=== PATIENT | male | born 1965 | race Caucasian/White ===

== ENCOUNTER → 2016-06-17 | Outpatient (CLI) | payer MEDICARE ==
[~2016-06-17] MED LIST: ABILIFY 10MG TA10 MG PO; ABILIFY20 MG PO; ALBUTEROL0.09 MG/A4 IH; ALBUTEROL0.83 MG/ML IH; AMBIEN 10MG10 MG PO; ASPI325T6 PO; ASPIRIN 81M81 MG/TA2 PO; ASPIRIN E.C. 8181 MG PO; ATARAX50 MG PO; ATIVAN 0.50.5 MG/TAB PO; ATROVENT INHALE14 GM IH; B COMPLEX1 TA2 PO; BETAPACE 80MG80 MG PO; BETAPACE AF160 MG PO; BUDEPRION XL150 MG PO; CEFTIN500 MG PO; CELEXA 20MG20 MG/TAB PO; CHROMAX PO; CIPRO 500MG TA500 MG PO; CLARITIN 1010 MG/TAB PO; CLEOCIN HC150 MG/CAP PO; CLEOCIN HCL300 MG PO; COLACE 100100 MG/CAP PO; COMBIVENT INH14.7 GM IH; COREG 3.123.125 MG/T PO; COREG 6.256.25 MG/TA PO; DEPAKOTE ER 50500 MG PO; DEPAKOTE500 MG PO; DHEA50 M1 PO; DIFLUCAN150 MG PO; DIFLUCAN200 MG PO; DILAUDID 2MG TAB2 MG PO; DOXYCYCLINE 10100 MG PO; ELIQUIS 5MG PO; FENTANYL 25 MCG TD; FENTANYL 25 MCG TOP; FENTANYL 50MCG TD; FENTANYL 50MCG TOP; FENTANYL25 MCG/HR TD; FLAGYL500 MG PO; FLEXERIL 1010 MG/TAB PO; FLOMAX 0.40.4 MG/CAP PO; FLOVENT 110MCG7.9 GM IH; GLUCOPHAGE500 MG/TAB PO; GOOD NEIGHBOR500 M6 PO; HUMALOG 75/2100 U/ML SC; HUMALOG MIX 75/10 ML SQ; IMDUR 30MG30 MG/TAB PO; IPRATROPIUM BROM3 M1 IH; KLONOPIN 0.5MG0.5 MG PO; KLONOPIN 1MG1 MG PO; LAMICTAL 25MG T25 MG PO; LAMICTAL150 MG PO; LAMICTAL200 MG PO; LANTUS SOLOS100 U/ML SQ; LASIX 20MG TABL20 MG PO; LASIX 40MG TABL40 MG PO; LEVAQUIN 5500 MG/TA1 PO; LEVAQUIN 750MG750 M1 PO; LIORESAL 1010 MG/TAB PO; LIPITOR 10MG10 MG PO; LIPITOR 80MG80 MG PO; LIPITOR20 MG PO; LOPID 600M600 MG/TAB PO; LOPRESSOR 225 MG/TAB PO; MEDROL 4MG DOSPA4 MG PO; NITROQUICK0.4 MG SL; NITROSTAT0.4 MG/TAB SL; NORCO 325 MG-101 TAB PO; NORCO 325 MG-51 TAB PO; OMNICEF 300MG300 MG PO; PERCOCET 325 MG1 TA2 PO; PERCOCET 325 MG1 TA3 PO; PERCOCET 325 MG1 TAB PO; PERCR 7.5 PO; PHENERGAN W/CO120 ML PO; PLAVIX 75MG TAB75 MG PO; PREDNISONE10 MG PO; PREDNISONE20 MG PO; PRINIVIL20 MG PO; PRINIVIL5 MG PO; PROAIR HFA0.09 MG/AC IH; PULMO-AIDE COMP1 DEV INH; RANEXA 500MG T500 MG PO; RAPAFLO8 MG PO; ROBAXIN 75750 MG/TAB PO; ROBITUSSIN DM 105 ML PO; RT SPIRIVA18 MCG IH; TESSALON PERLE200 MG PO; TOPAMAX50 MG PO; TUSS PO; TYLENOL 325MG325 MG PO; TYLENOL W/COD1 UDTAB PO; ULTRAM 50MG TAB50 MG PO; VENTOLIN0.09 MG IH; WELLBUTRIN SR150 M1 PO; WELLBUTRIN XL150 MG PO; WELLBUTRIN XL300 M1 PO; XANAX 1MG1 MG PO; ZESTRIL 20MG TA20 MG PO; ZITHROMAX 250M250 MG PO; ZITHROMAX Z PA250 MG PO; ZOLOFT 100MG100 MG PO; ZYRTEC 10MG10 MG PO
== END ==
LOC: BHSO 10:05
DX: F31.81 Bipolar II disorder (principal)

== ENCOUNTER 2016-07-02 16:04 | Emergency (ER) | payer MEDICARE ==
[~2016-07-02] VITALS: Ht 188 cm; Wt 131.8 kg
[~2016-07-02 16:04] MED LIST changes: -BETAPACE 80MG80 MG PO; -CLARITIN 1010 MG/TAB PO; -COREG 3.123.125 MG/T PO; -COREG 6.256.25 MG/TA PO; -FENTANYL 25 MCG TD; -FLAGYL500 MG PO; -LAMICTAL 25MG T25 MG PO; -LANTUS SOLOS100 U/ML SQ; -LASIX 20MG TABL20 MG PO; -OMNICEF 300MG300 MG PO; -PRINIVIL5 MG PO; -RAPAFLO8 MG PO; -TESSALON PERLE200 MG PO; -TOPAMAX50 MG PO
[2016-07-02 16:09] VITALS: BP 123/80; PULSE 93; TEMP 98.6
[2016-07-02 16:54] LABS: INFLUENZA B NEGATIVE
[2016-07-02] MEDS ORDERED: DOXYCYCLINE 10100 MG PO (16:59)
[2016-07-02] MEDS ORDERED: PROAIR HFA0.09 MG/AC IH (16:59)
[2016-07-02] MEDS ORDERED: TESSALON PERLE200 MG PO (16:59)
== END 2016-07-02 17:07 | disposition home or self-care (01) ==
LOC: COL.ER 16:04
PROVIDERS: Nurse Practitioner
DX: J40 Bronchitis, not specified as acute or chronic (principal); I10 Essential (primary) hypertension; E11.9 Type 2 diabetes mellitus without complications; Z79.4 Long term (current) use of insulin; I48.91 Unspecified atrial fibrillation; I25.10 Atherosclerotic heart disease of native coronary artery without angina pectoris; F17.210 Nicotine dependence, cigarettes, uncomplicated; Z79.02 Long term (current) use of antithrombotics/antiplatelets

== ENCOUNTER 2016-07-15 14:46 | Emergency (ER) | payer MEDICARE ==
[~2016-07-15] VITALS: Ht 188 cm; Wt 122.7 kg
[~2016-07-15 14:46] MED LIST changes: +TESSALON PERLE200 MG PO
[2016-07-15 14:52] VITALS: BP 118/82; TEMP 98.2
[2016-07-15] MEDS ORDERED: CLARITIN 1010 MG/TAB PO (15:32)
[2016-07-15] MEDS ORDERED: PRINIVIL20 MG PO (15:32)
[2016-07-15] MEDS ORDERED: IMDUR 30MG30 MG/TAB PO (15:33)
[2016-07-15] MEDS ORDERED: LOPRESSOR 225 MG/TAB PO (15:34)
[2016-07-15] MEDS ORDERED: WELLBUTRIN XL300 M1 PO (15:35)
[2016-07-15] MEDS ORDERED: KLONOPIN 1MG1 MG PO (15:35)
[2016-07-15] MEDS ORDERED: TOPAMAX50 MG PO (15:36)
[2016-07-15] MEDS ORDERED: COREG 6.256.25 MG/TA PO (15:37)
[2016-07-15] MEDS ORDERED: LAMICTAL 25MG T25 MG PO (15:37)
[2016-07-15] MEDS ORDERED: LOPID 600M600 MG/TAB PO (15:38)
[2016-07-15 16:16] LABS: BASO # 0.1 (0.0-0.2); EOS # 0.3 (0.0-0.7); EOS % 2.8 % (0-4.0); GRAN % 45.3 % (42.2-75.2); HEMATOCRIT 50.8 % (42.0-52.0); HEMOGLOBIN 17.3 g/dl (13.5-18.0); LYMPH # 3.7 (1.2-3.4); LYMPH % 41.6 % (20.0-51.0); MEAN CELL VOLUME 86 fl (80.0-100.0); MEAN CORPUSCULAR HEMOGLOBIN 29 pg (27.0-31.0); MEAN CORPUSCULAR HGB CONC 34 g/dl (33.0-37.0); MEAN PLATELET VOLUME 10.2 fl (7.4-10.4); MONO # 0.8 (0.1-0.6); MONO % 8.8 % (1.7-9.3); PLATELET COUNT 238 K/mm3 (130-400); REDCELL DISTRIBUTION WIDTH-CV 13.7 % (11.5-14.5); WHITE BLOOD COUNT 8.9 K/mm3 (4.8-10.8)
[2016-07-15 16:23] LABS: ADJUSTED CALCIUM 10.3 mg/dL (8.4-10.2); ALBUMIN 3.9 gm/dL (3.5-5.0); CALCIUM 10.2 mg/dL (8.4-10.2); CREATININE, serum 1.02 mg/dL (0.66-1.25); POTASSIUM 3.7 mmol/L (3.4-5.0); TOTAL PROTEIN 7.7 gm/dL (6.4-8.2)
[2016-07-15 16:35] LABS: TROPONIN-I 0.472 ng/mL (0.000-0.034)
[2016-07-15 23:07] VITALS: PULSE 84
== END 2016-07-15 18:30 | disposition home or self-care (01) ==
LOC: COL.ER 14:46
PROVIDERS: Family Medicine
DX: J18.9 Pneumonia, unspecified organism (principal); E11.65 Type 2 diabetes mellitus with hyperglycemia; I11.0 Hypertensive heart disease with heart failure; R42 Dizziness and giddiness; R53.83 Other fatigue; I50.9 Heart failure, unspecified; Z95.810 Presence of automatic (implantable) cardiac defibrillator; Z79.02 Long term (current) use of antithrombotics/antiplatelets; F17.210 Nicotine dependence, cigarettes, uncomplicated; Z45.018 Encounter for adjustment and management of other part of cardiac pacemaker; I48.91 Unspecified atrial fibrillation; Z53.29 Procedure and treatment not carried out because of patient's decision for other reasons
CPT/HCPCS: J0696; J1644; J1815

== ENCOUNTER 2016-08-06 19:36 | Emergency (ER) | payer MEDICARE ==
[~2016-08-06] VITALS: Ht 188 cm; Wt 119.5 kg
[~2016-08-06 19:36] MED LIST changes: +CLARITIN 1010 MG/TAB PO; +COREG 6.256.25 MG/TA PO; +LAMICTAL 25MG T25 MG PO; +TOPAMAX50 MG PO
[2016-08-06 19:40] VITALS: TEMP 98
[2016-08-06] MEDS ORDERED: ELIQUIS 5MG PO (20:02)
[2016-08-06 20:20] LABS: BASO # 0.1 (0.0-0.2); BASO % 0.5 % (0.0-2.0); EOS # 0.2 (0.0-0.7); EOS % 2.3 % (0-4.0); GRAN # 4.9 (1.4-6.5); GRAN % 49.4 % (42.2-75.2); HEMATOCRIT 51.7 % (42.0-52.0); HEMOGLOBIN 17.2 g/dl (13.5-18.0); LYMPH # 3.8 (1.2-3.4); LYMPH % 38.1 % (20.0-51.0); MEAN CELL VOLUME 86 fl (80.0-100.0); MEAN CORPUSCULAR HEMOGLOBIN 29 pg (27.0-31.0); MEAN CORPUSCULAR HGB CONC 33 g/dl (33.0-37.0); MONO # 0.9 (0.1-0.6); MONO % 9.4 % (1.7-9.3); PLATELET COUNT 270 K/mm3 (130-400); RED BLOOD COUNT 6.03 M/mm3 (4.20-5.60); REDCELL DISTRIBUTION WIDTH-CV 13.9 % (11.5-14.5); WHITE BLOOD COUNT 9.9 K/mm3 (4.8-10.8)
[2016-08-06 20:22] LABS: INR 1.2 (0.8-3.0); PROTHROMBIN TIME 13.4 SECONDS (9.7-12.8)
[2016-08-06 20:24] LABS: PARTIAL THROMBOPLASTIN TIME 46.2 SECONDS (26.0-37.0)
[2016-08-06 20:36] LABS: ADJUSTED CALCIUM 9.6 mg/dL (8.4-10.2); ALBUMIN 4.4 gm/dL (3.5-5.0); BILIRUBIN,TOTAL 1.1 mg/dL (0.0-1.0); CALCIUM 9.9 mg/dL (8.4-10.2); CREATININE, serum 0.94 mg/dL (0.66-1.25); POTASSIUM 3.7 mmol/L (3.4-5.0); TOTAL PROTEIN 8.1 gm/dL (6.4-8.2)
[2016-08-06 21:03] LABS: URINE APPEARANCE Turbid; URINE COLOR Red
[2016-08-06 21:04] LABS: PH 6 (5-8); SQUAMOUS EPITHELIAL 0-2 /hpf; URINE BILIRUBIN Negative (NEGATIVE); URINE BLOOD 2+ (NEGATIVE); URINE GLUCOSE Negative (NEGATIVE); URINE KETONE Negative (NEGATIVE); URINE RBC >50 /hpf; URINE UROBILINOGEN Negative (NEGATIVE); URINE WBC >50 /hpf
[2016-08-06 21:05] LABS: URINE BACTERIA Many /hpf
[2016-08-06] MEDS ORDERED: FLAGYL500 MG PO (21:35)
[2016-08-06] MEDS ORDERED: CIPRO 500MG TA500 MG PO (21:35)
[2016-08-06 21:42] VITALS: BP 126/94; PULSE 69
== END 2016-08-06 21:43 | disposition home or self-care (01) ==
LOC: COL.ER 19:36
PROVIDERS: Emergency Medicine
DX: N39.0 Urinary tract infection, site not specified (principal); R31.0 Gross hematuria; R10.31 Right lower quadrant pain; E11.9 Type 2 diabetes mellitus without complications; I10 Essential (primary) hypertension; Z79.02 Long term (current) use of antithrombotics/antiplatelets; Z79.84 Long term (current) use of oral hypoglycemic drugs

== ENCOUNTER 2016-08-21 19:24 | Inpatient (IN) | payer MEDICARE ==
[~2016-08-21] VITALS: Ht 188 cm; Wt 119.7 kg
[~2016-08-21 19:24] MED LIST changes: +FLAGYL500 MG PO
[2016-08-21 20:06] LABS: BASO # 0.1 (0.0-0.2); BASO % 0.6 % (0.0-2.0); EOS # 0.3 (0.0-0.7); EOS % 2.8 % (0-4.0); GRAN # 4.8 (1.4-6.5); GRAN % 48.2 % (42.2-75.2); HEMATOCRIT 51.7 % (42.0-52.0); HEMOGLOBIN 17.3 g/dl (13.5-18.0); LYMPH # 3.9 (1.2-3.4); LYMPH % 39.2 % (20.0-51.0); MEAN CELL VOLUME 86 fl (80.0-100.0); MEAN CORPUSCULAR HEMOGLOBIN 29 pg (27.0-31.0); MEAN CORPUSCULAR HGB CONC 34 g/dl (33.0-37.0); MEAN PLATELET VOLUME 9.6 fl (7.4-10.4); MONO # 0.9 (0.1-0.6); MONO % 8.9 % (1.7-9.3); PLATELET COUNT 259 K/mm3 (130-400); RED BLOOD COUNT 6.05 M/mm3 (4.20-5.60); REDCELL DISTRIBUTION WIDTH-CV 14.3 % (11.5-14.5); WHITE BLOOD COUNT 9.9 K/mm3 (4.8-10.8)
[2016-08-21 20:09] LABS: INR 1.1 (0.8-3.0); PROTHROMBIN TIME 12.2 SECONDS (9.7-12.8)
[2016-08-21 20:12] LABS: PARTIAL THROMBOPLASTIN TIME 33.6 SECONDS (26.0-37.0)
[2016-08-21 20:23] LABS: ADJUSTED CALCIUM 9.5 mg/dL (8.4-10.2); ALBUMIN 4.6 gm/dL (3.5-5.0); BILIRUBIN,TOTAL 0.9 mg/dL (0.0-1.0); CREATININE, serum 0.98 mg/dL (0.66-1.25); MAGNESIUM 2.1 mg/dL (1.6-2.3); PHOSPHOROUS 3.9 mg/dL (2.5-4.5); POTASSIUM 3.9 mmol/L (3.4-5.0)
[2016-08-21 20:26] VITALS: BP 109/69; PULSE 70
[2016-08-21 20:35] LABS: TROPONIN-I 0.015 ng/mL (0.000-0.034)
[2016-08-21 20:39] LABS: PROLACTIN 10.3 ng/mL (3.7-17.9)
[2016-08-21] MEDS ORDERED: LANTUS SOLOS100 U/ML SQ (21:41)
[2016-08-21] MEDS ORDERED: FENTANYL 25 MCG TD (21:43)
[2016-08-21] MEDS ORDERED: BETAPACE 80MG80 MG PO (21:46)
[2016-08-21] MEDS ORDERED: OMNICEF 300MG300 MG PO (21:48)
[2016-08-21 22:14] LABS: PH 6 (5-8); URINE APPEARANCE Clear; URINE BACTERIA None Seen /hpf; URINE BILIRUBIN Negative (NEGATIVE); URINE BLOOD 3+ (NEGATIVE); URINE COLOR Yellow; URINE GLUCOSE 1+ (NEGATIVE); URINE KETONE Trace (NEGATIVE); URINE RBC >50 /hpf; URINE UROBILINOGEN Negative (NEGATIVE); URINE WBC 0-2 /hpf
[2016-08-21 23:19] VITALS: BP 96/57; PULSE 56; TEMP 97.8
[2016-08-22 03:13] VITALS: BP 136/91; PULSE 77; TEMP 97.9
[2016-08-22 07:50] VITALS: BP 151/104; PULSE 88; TEMP 97.4
[2016-08-22 12:56] VITALS: BP 106/63; PULSE 75; TEMP 97.9
[2016-08-22 17:48] VITALS: BP 116/65; PULSE 58; TEMP 98.2
[2016-08-22 20:14] VITALS: BP 114/63; PULSE 61; TEMP 98.6
[2016-08-22 22:39] VITALS: BP 113/68; PULSE 54; TEMP 98.2; TEMP 98.4
[2016-08-23] VITALS (345 sets, daily range): BP systolic 92–108; BP diastolic 47–84; PULSE 54–64; TEMP 97.7–967.3; O2SAT 88–100
[2016-08-24] VITALS (536 sets, daily range): BP systolic 92–129; BP diastolic 55–83; PULSE 56–109; TEMP 97.8–98.5; O2SAT 70–100
[2016-08-25 02:53] VITALS: BP 119/72; PULSE 52; TEMP 98
[2016-08-25 05:53] VITALS: BP 119/57; PULSE 54; TEMP 98
[2016-08-25 10:30] VITALS: BP 122/73; PULSE 68; TEMP 98
[2016-08-25 14:05] VITALS: BP 130/78; PULSE 75; TEMP 98.1
[2016-08-25] MEDS ORDERED: ASPIRIN E.C. 8181 MG PO (14:39)
[2016-08-25] MEDS ORDERED: COREG 3.123.125 MG/T PO (14:39)
[2016-08-25] MEDS ORDERED: LASIX 20MG TABL20 MG PO (14:40)
== END 2016-08-25 15:30 | disposition home or self-care (01) | DRG 315 ==
LOC: COL.ER 19:24 → MEDICAL 21:39 → IMCU 08-23 09:00 → MEDICAL 08-23 09:00 → IMCU 08-23 16:30 → MEDICAL 08-23 17:53 → IMCU 08-23 17:53 → MEDICAL 08-23 17:53 → SURG 08-24 13:10
PROVIDERS: Emergency Medicine
DX: I95.9 Hypotension, unspecified (principal); I50.22 Chronic systolic (congestive) heart failure; I11.0 Hypertensive heart disease with heart failure; I25.10 Atherosclerotic heart disease of native coronary artery without angina pectoris; E11.9 Type 2 diabetes mellitus without complications; J44.9 Chronic obstructive pulmonary disease, unspecified; Z95.1 Presence of aortocoronary bypass graft; F17.210 Nicotine dependence, cigarettes, uncomplicated; Z95.5 Presence of coronary angioplasty implant and graft; I48.91 Unspecified atrial fibrillation; Z79.4 Long term (current) use of insulin
CPT/HCPCS: 99232-AI; 99239; G0378; J1650; J1815; J7040

== ENCOUNTER → 2016-09-22 | Outpatient (CLI) | payer MEDICARE ==
[~2016-09-22] MED LIST changes: +BETAPACE 80MG80 MG PO; +COREG 3.123.125 MG/T PO; +FENTANYL 25 MCG TD; +LANTUS SOLOS100 U/ML SQ; +LASIX 20MG TABL20 MG PO; +OMNICEF 300MG300 MG PO; +PRINIVIL5 MG PO; +RAPAFLO8 MG PO
== END ==
LOC: BHSO 09:41
DX: F31.81 Bipolar II disorder (principal)

== ENCOUNTER 2016-10-04 16:55 | Inpatient (IN) | payer MEDICARE ==
[~2016-10-04] VITALS: Ht 182.9 cm; Wt 87.8 kg
[~2016-10-04 16:55] MED LIST changes: -PRINIVIL5 MG PO; -RAPAFLO8 MG PO
[2016-10-04 18:11] LABS: HEMATOCRIT 49.1 % (42.0-52.0); HEMOGLOBIN 16.9 g/dl (13.5-18.0); MEAN CELL VOLUME 87 fl (80.0-100.0); MEAN CORPUSCULAR HEMOGLOBIN 30 pg (27.0-31.0); MEAN CORPUSCULAR HGB CONC 34 g/dl (33.0-37.0); MEAN PLATELET VOLUME 9.5 fl (7.4-10.4); PLATELET COUNT 325 K/mm3 (130-400); RED BLOOD COUNT 5.65 M/mm3 (4.20-5.60); REDCELL DISTRIBUTION WIDTH-CV 14.9 % (11.5-14.5)
[2016-10-04 18:14] LABS: ADD PATHOLOGY DIFF REVIEW NO
[2016-10-04 18:23] LABS: ADJUSTED CALCIUM 9.5 mg/dL (8.4-10.2); ALBUMIN 4.4 gm/dL (3.5-5.0); BILIRUBIN,TOTAL 1.1 mg/dL (0.0-1.0); CALCIUM 9.8 mg/dL (8.4-10.2); CREATININE, serum 0.89 mg/dL (0.66-1.25); POTASSIUM 3.6 mmol/L (3.4-5.0); TOTAL PROTEIN 8.1 gm/dL (6.4-8.2)
[2016-10-04 18:34] LABS: TROPONIN-I 0.015 ng/mL (0.000-0.034)
[2016-10-04 18:48] LABS: BAND 4 % (0-10); EOSINOPHIL 1 % (0-4); NEUTROPHILS 72 % (42.0-75.2); PLATELET ESTIMATE NORMAL (NORMAL); TOTAL CELLS COUNTED 100
[2016-10-04 20:19] VITALS: BP 106/74; PULSE 64
[2016-10-04 20:19] LABS: PH 5 (5-8); URINE APPEARANCE Cloudy; URINE BILIRUBIN Negative (NEGATIVE); URINE BLOOD 3+ (NEGATIVE); URINE COLOR Amber; URINE GLUCOSE Negative (NEGATIVE); URINE KETONE Negative (NEGATIVE); URINE UROBILINOGEN >=4.0 mg/dL (NEGATIVE)
[2016-10-04 20:26] LABS: URINE WBC >50 /hpf
[2016-10-04 20:27] LABS: URINE BACTERIA Many /hpf; URINE RBC 20-50 /hpf
[2016-10-04 22:16] VITALS: BP 125/77; PULSE 75; TEMP 98.9
[2016-10-05 00:55] VITALS: BP 120/70; PULSE 70; TEMP 98.9
[2016-10-05 02:53] VITALS: BP 143/93; PULSE 78; TEMP 98.8
[2016-10-05 07:07] LABS: BASO # 0.1 (0.0-0.2); BASO % 0.4 % (0.0-2.0); EOS # 0.3 (0.0-0.7); EOS % 2.1 % (0-4.0); GRAN # 8.2 (1.4-6.5); HEMATOCRIT 43.5 % (42.0-52.0); LYMPH # 3.5 (1.2-3.4); LYMPH % 25.9 % (20.0-51.0); MEAN CELL VOLUME 89 fl (80.0-100.0); MEAN CORPUSCULAR HEMOGLOBIN 29 pg (27.0-31.0); MEAN CORPUSCULAR HGB CONC 33 g/dl (33.0-37.0); MEAN PLATELET VOLUME 9.9 fl (7.4-10.4); MONO # 1.3 (0.1-0.6); PLATELET COUNT 277 K/mm3 (130-400); RED BLOOD COUNT 4.91 M/mm3 (4.20-5.60); REDCELL DISTRIBUTION WIDTH-CV 15.1 % (11.5-14.5); WHITE BLOOD COUNT 13.5 K/mm3 (4.8-10.8)
[2016-10-05 07:12] LABS: HEMOGLOBIN 14.4 g/dl (13.5-18.0)
[2016-10-05 07:22] LABS: CALCIUM 8.7 mg/dL (8.4-10.2); CREATININE, serum 0.71 mg/dL (0.66-1.25); POTASSIUM 3.2 mmol/L (3.4-5.0)
[2016-10-05 07:51] VITALS: BP 131/96; PULSE 81; TEMP 98.6
[2016-10-05 11:30] VITALS: BP 113/68; PULSE 70; TEMP 97.9
[2016-10-05 15:52] VITALS: BP 121/73; PULSE 66; TEMP 97.9
[2016-10-05 19:47] VITALS: BP 121/82; PULSE 72; TEMP 97.8
[2016-10-06] VITALS (7 sets, daily range): BP systolic 121–160; BP diastolic 60–90; PULSE 48–99; TEMP 97–98.5
[2016-10-07 04:21] VITALS: BP 137/84; PULSE 53; TEMP 98.1
[2016-10-07 07:36] VITALS: BP 128/75; PULSE 57; TEMP 97.2
[2016-10-07 12:00] VITALS: BP 145/81; PULSE 109; TEMP 98.2
[2016-10-07 15:31] VITALS: BP 137/85; PULSE 72
[2016-10-07 19:52] VITALS: BP 141/75; PULSE 66; TEMP 97.5
[2016-10-08 00:07] VITALS: BP 153/97; PULSE 76; TEMP 98.9
[2016-10-08 03:31] VITALS: BP 138/71; PULSE 60; TEMP 97.4
[2016-10-08 07:55] VITALS: BP 135/85; PULSE 56; TEMP 98
[2016-10-08 11:17] VITALS: BP 112/51; PULSE 57; TEMP 98.4
[2016-10-08] MEDS ORDERED: PRINIVIL20 MG PO (12:41)
[2016-10-08] MEDS ORDERED: CIPRO 500MG TA500 MG PO (12:43)
== END 2016-10-08 15:16 | disposition home or self-care (01) | DRG 694 ==
LOC: COL.ER 16:55 → MEDICAL 20:31
PROVIDERS: Emergency Medicine; Nurse Practitioner Family
DX: N20.0 Calculus of kidney (principal); I50.22 Chronic systolic (congestive) heart failure; I25.10 Atherosclerotic heart disease of native coronary artery without angina pectoris; B96.89 Other specified bacterial agents as the cause of diseases classified elsewhere; I11.0 Hypertensive heart disease with heart failure; E11.9 Type 2 diabetes mellitus without complications; J44.9 Chronic obstructive pulmonary disease, unspecified; I48.91 Unspecified atrial fibrillation; Z79.4 Long term (current) use of insulin; Z95.1 Presence of aortocoronary bypass graft; Z95.5 Presence of coronary angioplasty implant and graft; F17.210 Nicotine dependence, cigarettes, uncomplicated; N40.1 Benign prostatic hyperplasia with lower urinary tract symptoms; N39.498 Other specified urinary incontinence
CPT/HCPCS: 99223-AI; 99232-AI; 99239; J0696; J0744; J1170; J1885; J2405; J7030; Q9967

== ENCOUNTER 2016-10-27 18:47 | Emergency (ER) | payer MEDICARE ==
[~2016-10-27] VITALS: Ht 185.4 cm; Wt 112.7 kg
[2016-10-27 18:55] VITALS: BP 135/97; TEMP 98.4
[2016-10-27 19:51] LABS: BASO # 0.1 (0.0-0.2); BASO % 0.7 % (0.0-2.0); EOS # 0.3 (0.0-0.7); GRAN # 5.2 (1.4-6.5); GRAN % 46.2 % (42.2-75.2); HEMATOCRIT 46.2 % (42.0-52.0); LYMPH # 4.4 (1.2-3.4); LYMPH % 39.2 % (20.0-51.0); MEAN CELL VOLUME 87 fl (80.0-100.0); MEAN CORPUSCULAR HEMOGLOBIN 30 pg (27.0-31.0); MEAN CORPUSCULAR HGB CONC 35 g/dl (33.0-37.0); MEAN PLATELET VOLUME 9.3 fl (7.4-10.4); MONO # 1.2 (0.1-0.6); MONO % 10.4 % (1.7-9.3); PLATELET COUNT 304 K/mm3 (130-400); REDCELL DISTRIBUTION WIDTH-CV 14.4 % (11.5-14.5); WHITE BLOOD COUNT 11.2 K/mm3 (4.8-10.8)
[2016-10-27 19:53] LABS: INR 1.2 (0.8-3.0); PROTHROMBIN TIME 13.3 SECONDS (9.7-12.8)
[2016-10-27 19:59] LABS: ADJUSTED CALCIUM 9.3 mg/dL (8.4-10.2); ALBUMIN 3.9 gm/dL (3.5-5.0); CALCIUM 9.2 mg/dL (8.4-10.2); CREATININE, serum 0.92 mg/dL (0.66-1.25); POTASSIUM 3.3 mmol/L (3.4-5.0)
[2016-10-27 20:11] LABS: TROPONIN-I 0.023 ng/mL (0.000-0.034)
[2016-10-27 20:37] VITALS: PULSE 84
== END 2016-10-27 20:40 | disposition home or self-care (01) ==
LOC: COL.ER 18:47
PROVIDERS: Emergency Medicine
DX: R53.83 Other fatigue (principal); I50.9 Heart failure, unspecified; I11.0 Hypertensive heart disease with heart failure; I25.10 Atherosclerotic heart disease of native coronary artery without angina pectoris; Z95.1 Presence of aortocoronary bypass graft; Z95.5 Presence of coronary angioplasty implant and graft; F17.210 Nicotine dependence, cigarettes, uncomplicated; Z79.01 Long term (current) use of anticoagulants; Z79.82 Long term (current) use of aspirin

== ENCOUNTER 2016-11-06 13:04 | Day surgery (SDC) | payer MEDICARE ==
[2016-11-06] VITALS (9 sets, daily range): BP systolic 119–165; BP diastolic 86–110; PULSE 65–94; TEMP 97.4
[~2016-11-06] VITALS: Ht 185.5 cm; Wt 113.5 kg
[2016-11-06] MEDS ORDERED: RAPAFLO8 MG PO (14:26)
[2016-11-06] MEDS ORDERED: COREG 3.123.125 MG/T PO (14:33)
[2016-11-06] MEDS ORDERED: ASPIRIN E.C. 8181 MG PO (14:33)
[2016-11-06 14:34] LABS: INR 1.2 (0.8-3.0); PROTHROMBIN TIME 13.5 SECONDS (9.7-12.8)
[2016-11-06] MEDS ORDERED: LASIX 20MG TABL20 MG PO (14:34)
[2016-11-06] MEDS ORDERED: PRINIVIL5 MG PO (14:35)
[2016-11-06 14:47] LABS: POTASSIUM 3.5 mmol/L (3.4-5.0)
[2016-11-06 15:22] LABS: THYROID STIMULATING HORMONE 0.868 uIU/mL (0.465-4.680)
== END 2016-11-06 17:30 | disposition home or self-care (01) ==
LOC: COL.CAR 13:04
PROVIDERS: Internal Medicine Interventional Cardiology
DX: I48.2 Chronic atrial fibrillation (principal); I34.0 Nonrheumatic mitral (valve) insufficiency; I70.212 Atherosclerosis of native arteries of extremities with intermittent claudication, left leg; I10 Essential (primary) hypertension; I25.10 Atherosclerotic heart disease of native coronary artery without angina pectoris; J44.9 Chronic obstructive pulmonary disease, unspecified; E11.9 Type 2 diabetes mellitus without complications; F17.210 Nicotine dependence, cigarettes, uncomplicated; Z95.1 Presence of aortocoronary bypass graft; Z79.84 Long term (current) use of oral hypoglycemic drugs; Z79.01 Long term (current) use of anticoagulants; Z82.49 Family history of ischemic heart disease and other diseases of the circulatory system
CPT/HCPCS: J2250; J3010; J7030

== ENCOUNTER 2017-03-05 14:41 | Emergency (ER) | payer MEDICARE ==
[~2017-03-05] VITALS: Ht 182.9 cm; Wt 127.3 kg
[~2017-03-05 14:41] MED LIST changes: +PRINIVIL5 MG PO; +RAPAFLO8 MG PO
[2017-03-05 14:50] VITALS: TEMP 97.5
[2017-03-05 15:24] LABS: BASO # 0.1 (0.0-0.2); BASO % 0.6 % (0.0-2.0); EOS # 0.1 (0.0-0.7); GRAN # 7.4 (1.4-6.5); GRAN % 62.2 % (42.2-75.2); HEMATOCRIT 43.2 % (42.0-52.0); HEMOGLOBIN 13.8 g/dl (13.5-18.0); LYMPH # 3.1 (1.2-3.4); LYMPH % 25.9 % (20.0-51.0); MEAN CELL VOLUME 95 fl (80.0-100.0); MEAN CORPUSCULAR HEMOGLOBIN 30 pg (27.0-31.0); MEAN CORPUSCULAR HGB CONC 32 g/dl (33.0-37.0); MEAN PLATELET VOLUME 9.8 fl (7.4-10.4); MONO # 1.1 (0.1-0.6); MONO % 9.6 % (1.7-9.3); PLATELET COUNT 266 K/mm3 (130-400); RED BLOOD COUNT 4.56 M/mm3 (4.20-5.60); WHITE BLOOD COUNT 11.8 K/mm3 (4.8-10.8)
[2017-03-05 16:10] LABS: ADJUSTED CALCIUM 8.9 mg/dL (8.4-10.2); ALBUMIN 3.9 gm/dL (3.5-5.0); BILIRUBIN,TOTAL 0.7 mg/dL (0.0-1.0); CALCIUM 8.8 mg/dL (8.4-10.2); CREATININE, serum 0.97 mg/dL (0.66-1.25); POTASSIUM 3.8 mmol/L (3.4-5.0); TOTAL PROTEIN 7.3 gm/dL (6.4-8.2)
[2017-03-05 16:25] LABS: TROPONIN-I 0.041 ng/mL (0.000-0.034)
[2017-03-05 17:30] VITALS: BP 133/92; PULSE 72
== END 2017-03-05 18:15 | disposition home or self-care (01) ==
LOC: COL.ER 14:41
PROVIDERS: Emergency Medicine
DX: I20.9 Angina pectoris, unspecified (principal); I11.0 Hypertensive heart disease with heart failure; I50.9 Heart failure, unspecified; I25.5 Ischemic cardiomyopathy; I42.9 Cardiomyopathy, unspecified; I48.91 Unspecified atrial fibrillation; J44.9 Chronic obstructive pulmonary disease, unspecified; I25.2 Old myocardial infarction; F17.210 Nicotine dependence, cigarettes, uncomplicated; Z79.82 Long term (current) use of aspirin; Z79.02 Long term (current) use of antithrombotics/antiplatelets; Z79.01 Long term (current) use of anticoagulants; Z79.4 Long term (current) use of insulin; Z95.5 Presence of coronary angioplasty implant and graft
CPT/HCPCS: J1100

== ENCOUNTER 2017-03-08 01:18 | Emergency (ER) | payer MEDICARE ==
[~2017-03-08] VITALS: Ht 182.9 cm; Wt 127.3 kg
[2017-03-08 01:21] VITALS: TEMP 98.5
[2017-03-08 02:14] LABS: BASO # 0.1 (0.0-0.2); BASO % 0.4 % (0.0-2.0); EOS # 0.1 (0.0-0.7); EOS % 0.6 % (0-4.0); GRAN # 9.2 (1.4-6.5); GRAN % 56.8 % (42.2-75.2); HEMATOCRIT 42.2 % (42.0-52.0); HEMOGLOBIN 13.9 g/dl (13.5-18.0); LYMPH # 5.2 (1.2-3.4); LYMPH % 31.8 % (20.0-51.0); MEAN CELL VOLUME 93 fl (80.0-100.0); MEAN CORPUSCULAR HEMOGLOBIN 31 pg (27.0-31.0); MEAN CORPUSCULAR HGB CONC 33 g/dl (33.0-37.0); MEAN PLATELET VOLUME 9.7 fl (7.4-10.4); MONO # 1.4 (0.1-0.6); MONO % 8.5 % (1.7-9.3); PLATELET COUNT 274 K/mm3 (130-400); RED BLOOD COUNT 4.53 M/mm3 (4.20-5.60); WHITE BLOOD COUNT 16.2 K/mm3 (4.8-10.8)
[2017-03-08 02:24] LABS: ADJUSTED CALCIUM 9.2 mg/dL (8.4-10.2); ALBUMIN 3.7 gm/dL (3.5-5.0); BILIRUBIN,TOTAL 0.6 mg/dL (0.0-1.0); CREATININE, serum 1.08 mg/dL (0.66-1.25); POTASSIUM 3.8 mmol/L (3.4-5.0); TOTAL PROTEIN 6.8 gm/dL (6.4-8.2)
[2017-03-08 02:39] LABS: TROPONIN-I 0.045 ng/mL (0.000-0.034)
[2017-03-08] MEDS ORDERED: NEB MC (02:51)
[2017-03-08] MEDS ORDERED: IPRATROPIUM BROM3 M1 IH (02:51)
[2017-03-08 03:00] VITALS: BP 128/94; PULSE 56
== END 2017-03-08 03:15 | disposition home or self-care (01) ==
LOC: COL.ER 01:18
PROVIDERS: Emergency Medicine
DX: J44.1 Chronic obstructive pulmonary disease with (acute) exacerbation (principal); I48.92 Unspecified atrial flutter; M54.9 Dorsalgia, unspecified; G89.29 Other chronic pain; I48.91 Unspecified atrial fibrillation; E11.9 Type 2 diabetes mellitus without complications; I10 Essential (primary) hypertension; I25.5 Ischemic cardiomyopathy; I73.9 Peripheral vascular disease, unspecified; F17.210 Nicotine dependence, cigarettes, uncomplicated; Z95.5 Presence of coronary angioplasty implant and graft; Z79.84 Long term (current) use of oral hypoglycemic drugs; Z79.82 Long term (current) use of aspirin

== ENCOUNTER 2017-04-01 19:49 | Inpatient (IN) | payer MEDICARE ==
[~2017-04-01] VITALS: Ht 182.9 cm; Wt 136.7 kg
[~2017-04-01 19:49] MED LIST changes: +ALDACTONE50 MG PO; +CORDARONE200 MG/TAB PO; +ENTRESTO 24 MG1 EACH PO; +GLUCOPHAGE1000 MG PO; +NEB MC
[2017-04-01 20:44] LABS: HEMOGLOBIN 14.7 g/dl (13.5-18.0); MEAN CELL VOLUME 94 fl (80.0-100.0); MEAN CORPUSCULAR HEMOGLOBIN 30 pg (27.0-31.0); MEAN CORPUSCULAR HGB CONC 32 g/dl (33.0-37.0); MEAN PLATELET VOLUME 9.3 fl (7.4-10.4); PLATELET COUNT 251 K/mm3 (130-400); RED BLOOD COUNT 4.91 M/mm3 (4.20-5.60); REDCELL DISTRIBUTION WIDTH-CV 13.8 % (11.5-14.5)
[2017-04-01 20:56] LABS: ALBUMIN 3.8 gm/dL (3.5-5.0); BILIRUBIN,TOTAL 0.7 mg/dL (0.0-1.0); CALCIUM 9.1 mg/dL (8.4-10.2); CREATININE, serum 0.98 mg/dL (0.66-1.25); TOTAL PROTEIN 6.8 gm/dL (6.4-8.2)
[2017-04-01 21:00] LABS: ANISOCYTOSIS 1+; BAND 5 % (0-10); EOSINOPHIL 1 % (0-4); HYPOCHROMIA 2+; LYMPHOCYTE 28 % (20.0-51.0); MICROCYTOSIS 2+; NEUTROPHILS 57 % (42.0-75.2); POLYCHROMASIA 1+
[2017-04-01 21:08] LABS: TROPONIN-I 0.022 ng/mL (0.000-0.034)
[2017-04-01] MEDS ORDERED: PERCOCET 325 MG1 TA3 PO (23:08)
[2017-04-02] VITALS (7 sets, daily range): BP systolic 100–135; BP diastolic 57–95; PULSE 62–127; TEMP 97.4–98.7
[2017-04-02 00:44] LABS: BASO # 0.1 (0.0-0.2); BASO % 0.7 % (0.0-2.0); EOS # 0.3 (0.0-0.7); GRAN # 6.3 (1.4-6.5); GRAN % 57.9 % (42.2-75.2); HEMATOCRIT 45.7 % (42.0-52.0); HEMOGLOBIN 14.6 g/dl (13.5-18.0); LYMPH % 27.7 % (20.0-51.0); MEAN CELL VOLUME 93 fl (80.0-100.0); MEAN CORPUSCULAR HEMOGLOBIN 30 pg (27.0-31.0); MEAN CORPUSCULAR HGB CONC 32 g/dl (33.0-37.0); MEAN PLATELET VOLUME 9.3 fl (7.4-10.4); MONO # 1.1 (0.1-0.6); MONO % 10.3 % (1.7-9.3); PLATELET COUNT 263 K/mm3 (130-400); REDCELL DISTRIBUTION WIDTH-CV 13.9 % (11.5-14.5)
[2017-04-02 00:53] LABS: PHOSPHOROUS 3.9 mg/dL (2.5-4.5)
[2017-04-02 01:06] LABS: TROPONIN-I 0.03 ng/mL (0.000-0.034)
[2017-04-02 01:09] LABS: CALCIUM 8.8 mg/dL (8.4-10.2); POTASSIUM 3.7 mmol/L (3.4-5.0)
[2017-04-02 22:30] LABS: COLLECTION METHOD CLEAN CATCH
[2017-04-02 22:39] LABS: PH 7 (5-8); SQUAMOUS EPITHELIAL None Seen /hpf; URINE APPEARANCE Clear; URINE BACTERIA None Seen /hpf; URINE BILIRUBIN Negative (NEGATIVE); URINE BLOOD 2+ (NEGATIVE); URINE COLOR Yellow; URINE GLUCOSE 3+ (NEGATIVE); URINE KETONE Negative (NEGATIVE); URINE LEUKOCYTE ESTERASE 1+ (NEGATIVE); URINE NITRATE Negative (NEGATIVE); URINE PROTEIN(semi-quant) Negative (NEGATIVE)
[2017-04-03 03:25] VITALS: BP 116/60; PULSE 63; TEMP 99
[2017-04-03 06:47] LABS: BASO % 0.2 % (0.0-2.0); GRAN % 86.5 % (42.2-75.2); HEMATOCRIT 45.2 % (42.0-52.0); HEMOGLOBIN 14.6 g/dl (13.5-18.0); LYMPH # 1.3 (1.2-3.4); LYMPH % 9.8 % (20.0-51.0); MEAN CELL VOLUME 91 fl (80.0-100.0); MEAN CORPUSCULAR HEMOGLOBIN 30 pg (27.0-31.0); MEAN CORPUSCULAR HGB CONC 32 g/dl (33.0-37.0); MEAN PLATELET VOLUME 9.5 fl (7.4-10.4); MONO # 0.4 (0.1-0.6); MONO % 2.8 % (1.7-9.3); PLATELET COUNT 288 K/mm3 (130-400); RED BLOOD COUNT 4.95 M/mm3 (4.20-5.60); REDCELL DISTRIBUTION WIDTH-CV 13.6 % (11.5-14.5)
[2017-04-03 09:26] VITALS: BP 102/54; PULSE 63; TEMP 98.3
[2017-04-03 11:54] VITALS: BP 113/58; PULSE 80; TEMP 98.7
[2017-04-03 15:40] VITALS: BP 123/81; PULSE 44; TEMP 97.9
[2017-04-03 20:12] VITALS: BP 115/68; PULSE 74; TEMP 97.8
[2017-04-03 23:00] VITALS: BP 113/54; PULSE 71; TEMP 98.5
[2017-04-04 04:23] VITALS: BP 112/80; PULSE 62; TEMP 97.8
[2017-04-04 07:00] LABS: BASO % 0.1 % (0.0-2.0); GRAN # 15.3 (1.4-6.5); GRAN % 85.1 % (42.2-75.2); HEMATOCRIT 45.3 % (42.0-52.0); HEMOGLOBIN 14.5 g/dl (13.5-18.0); LYMPH # 1.4 (1.2-3.4); LYMPH % 7.9 % (20.0-51.0); MEAN CELL VOLUME 92 fl (80.0-100.0); MEAN CORPUSCULAR HEMOGLOBIN 30 pg (27.0-31.0); MEAN CORPUSCULAR HGB CONC 32 g/dl (33.0-37.0); MEAN PLATELET VOLUME 9.6 fl (7.4-10.4); MONO # 1.1 (0.1-0.6); MONO % 6.1 % (1.7-9.3); PLATELET COUNT 297 K/mm3 (130-400); REDCELL DISTRIBUTION WIDTH-CV 13.8 % (11.5-14.5)
[2017-04-04 07:03] LABS: COLLECTION METHOD CLEAN CATCH
[2017-04-04 07:27] LABS: BUDDING YEAST Present /hpf; MUCOUS Present /lpf; PH 6 (5-8); SQUAMOUS EPITHELIAL 0-2 /hpf; URINE APPEARANCE Hazy; URINE BACTERIA None Seen /hpf; URINE BILIRUBIN Negative (NEGATIVE); URINE BLOOD 3+ (NEGATIVE); URINE COLOR Straw; URINE GLUCOSE 3+ (NEGATIVE); URINE KETONE Negative (NEGATIVE); URINE LEUKOCYTE ESTERASE 3+ (NEGATIVE); URINE NITRATE Negative (NEGATIVE); URINE PROTEIN(semi-quant) Negative (NEGATIVE); URINE RBC >50 /hpf; URINE UROBILINOGEN Negative (NEGATIVE); URINE WBC >50 /hpf
[2017-04-04 08:06] VITALS: BP 126/67; PULSE 85; TEMP 98.1
[2017-04-04 12:01] VITALS: BP 135/77; PULSE 87; TEMP 98.4
[2017-04-04] MEDS ORDERED: MUCINEX1200 MG PO (13:51)
[2017-04-04] MEDS ORDERED: PROTONIX 40MG T40 MG PO (13:52)
[2017-04-04] MEDS ORDERED: PREDNISONE20 MG PO (13:53)
[2017-04-04] MEDS ORDERED: LEVAQUIN 5500 MG/TA1 PO (13:55)
[2017-04-16] MEDS ORDERED: PROAIR HFA0.09 MG/AC IH (17:43)
[2017-04-16] MEDS ORDERED: IPRATROPIUM BROM3 M1 IH (17:43)
[2017-04-16] MEDS ORDERED: LIPITOR 80MG80 MG PO (17:44)
[2017-04-16] MEDS ORDERED: ASPIRIN 81M81 MG/TA2 PO (17:44)
[2017-04-16] MEDS ORDERED: ELIQUIS 5MG PO (17:44)
[2017-04-16] MEDS ORDERED: COREG 6.256.25 MG/TA PO (17:45)
[2017-04-16] MEDS ORDERED: PLAVIX 75MG TAB75 MG PO (17:45)
[2017-04-16] MEDS ORDERED: LASIX 40MG TABL40 MG PO (17:46)
[2017-04-16] MEDS ORDERED: LOPID 600M600 MG/TAB PO (17:46)
[2017-04-16] MEDS ORDERED: ENTRESTO 24 MG1 EACH PO (17:46)
[2017-04-16] MEDS ORDERED: KLONOPIN 1MG1 MG PO (17:47)
[2017-04-16] MEDS ORDERED: ALDACTONE50 MG PO (17:47)
[2017-04-16] MEDS ORDERED: ZOLOFT 100MG100 MG PO (17:47)
[2017-04-16] MEDS ORDERED: GLUCOPHAGE1000 MG PO (17:48)
[2017-04-16] MEDS ORDERED: LAMICTAL150 MG PO (17:48)
[2017-04-16] MEDS ORDERED: COREG 3.123.125 MG/T PO (17:49)
[2017-04-16] MEDS ORDERED: TOPAMAX50 MG PO (17:50)
[2017-04-18] MEDS ORDERED: CLEOCIN HCL300 MG PO (09:04)
[2017-04-18] MEDS ORDERED: NORCO 325 MG-51 TAB PO (09:04)
[2017-04-18] MEDS ORDERED: CIPRO 500MG TA500 MG PO (09:04)
== END 2017-04-04 15:11 | disposition home or self-care (01) | DRG 292 ==
LOC: COL.ER 19:49 → MEDICAL 22:18
PROVIDERS: Emergency Medicine; Internal Medicine; Nurse Practitioner Family
DX: I11.0 Hypertensive heart disease with heart failure (principal); I48.92 Unspecified atrial flutter; J44.1 Chronic obstructive pulmonary disease with (acute) exacerbation; I50.21 Acute systolic (congestive) heart failure; I48.91 Unspecified atrial fibrillation; Z66 Do not resuscitate; G47.33 Obstructive sleep apnea (adult) (pediatric); E78.5 Hyperlipidemia, unspecified; F17.210 Nicotine dependence, cigarettes, uncomplicated; E11.9 Type 2 diabetes mellitus without complications; F32.9 Major depressive disorder, single episode, unspecified; F41.9 Anxiety disorder, unspecified; I25.10 Atherosclerotic heart disease of native coronary artery without angina pectoris; I42.9 Cardiomyopathy, unspecified; Z95.1 Presence of aortocoronary bypass graft; Z95.5 Presence of coronary angioplasty implant and graft; Z79.02 Long term (current) use of antithrombotics/antiplatelets
CPT/HCPCS: 99222-AI; 99232-AI; 99239; J1940; J2920

== ENCOUNTER 2017-04-14 02:39 | Emergency (ER) | payer MEDICARE ==
[~2017-04-14] VITALS: Ht 182.9 cm; Wt 136.7 kg
[~2017-04-14 02:39] MED LIST changes: +MUCINEX1200 MG PO; +PROTONIX 40MG T40 MG PO
[2017-04-14 02:42] VITALS: TEMP 97.4
[2017-04-14 03:25] LABS: BASO # 0.1 (0.0-0.2); BASO % 0.6 % (0.0-2.0); EOS # 0.3 (0.0-0.7); EOS % 1.9 % (0-4.0); GRAN # 11.2 (1.4-6.5); GRAN % 68.5 % (42.2-75.2); HEMOGLOBIN 15.3 g/dl (13.5-18.0); LYMPH # 3.2 (1.2-3.4); LYMPH % 19.8 % (20.0-51.0); MEAN CELL VOLUME 91 fl (80.0-100.0); MEAN CORPUSCULAR HEMOGLOBIN 30 pg (27.0-31.0); MEAN CORPUSCULAR HGB CONC 33 g/dl (33.0-37.0); MEAN PLATELET VOLUME 9.7 fl (7.4-10.4); MONO # 1.3 (0.1-0.6); MONO % 8.1 % (1.7-9.3); PLATELET COUNT 226 K/mm3 (130-400); RED BLOOD COUNT 5.14 M/mm3 (4.20-5.60); WHITE BLOOD COUNT 16.3 K/mm3 (4.8-10.8)
[2017-04-14 03:31] LABS: ADJUSTED CALCIUM 9.3 mg/dL (8.4-10.2); ALBUMIN 3.8 gm/dL (3.5-5.0); BILIRUBIN,TOTAL 0.7 mg/dL (0.0-1.0); CALCIUM 9.1 mg/dL (8.4-10.2); CREATININE, serum 0.89 mg/dL (0.66-1.25); POTASSIUM 3.8 mmol/L (3.4-5.0); TOTAL PROTEIN 6.8 gm/dL (6.4-8.2)
[2017-04-14 03:43] LABS: TROPONIN-I 0.015 ng/mL (0.000-0.034)
[2017-04-14] MEDS ORDERED: RT ALBUTER2.5 MG/0.5 IH (05:51)
[2017-04-14 06:18] VITALS: BP 131/86; PULSE 88
[2017-04-14] MEDS ORDERED: CLEOCIN HCL300 MG PO (06:22)
[2017-04-16] MEDS ORDERED: IPRATROPIUM BROM3 M1 IH (17:43)
[2017-04-16] MEDS ORDERED: PROAIR HFA0.09 MG/AC IH (17:43)
[2017-04-16] MEDS ORDERED: ELIQUIS 5MG PO (17:44)
[2017-04-16] MEDS ORDERED: LIPITOR 80MG80 MG PO (17:44)
[2017-04-16] MEDS ORDERED: ASPIRIN 81M81 MG/TA2 PO (17:44)
[2017-04-16] MEDS ORDERED: PLAVIX 75MG TAB75 MG PO (17:45)
[2017-04-16] MEDS ORDERED: COREG 6.256.25 MG/TA PO (17:45)
[2017-04-16] MEDS ORDERED: ENTRESTO 24 MG1 EACH PO (17:46)
[2017-04-16] MEDS ORDERED: LOPID 600M600 MG/TAB PO (17:46)
[2017-04-16] MEDS ORDERED: LASIX 40MG TABL40 MG PO (17:46)
[2017-04-16] MEDS ORDERED: ALDACTONE50 MG PO (17:47)
[2017-04-16] MEDS ORDERED: ZOLOFT 100MG100 MG PO (17:47)
[2017-04-16] MEDS ORDERED: KLONOPIN 1MG1 MG PO (17:47)
[2017-04-16] MEDS ORDERED: GLUCOPHAGE1000 MG PO (17:48)
[2017-04-16] MEDS ORDERED: LAMICTAL150 MG PO (17:48)
[2017-04-16] MEDS ORDERED: COREG 3.123.125 MG/T PO (17:49)
[2017-04-16] MEDS ORDERED: TOPAMAX50 MG PO (17:50)
== END 2017-04-14 06:32 | disposition home or self-care (01) ==
LOC: COL.ER 02:39
PROVIDERS: Emergency Medicine
DX: I50.9 Heart failure, unspecified (principal); I48.92 Unspecified atrial flutter; G89.29 Other chronic pain; R60.0 Localized edema; Z79.02 Long term (current) use of antithrombotics/antiplatelets; Z79.82 Long term (current) use of aspirin; Z79.01 Long term (current) use of anticoagulants
CPT/HCPCS: J1940; J7030

== ENCOUNTER 2021-06-09 19:39 | Emergency (ER) | payer MEDICARE, MEDICAID ==
[~2021-06-09] VITALS: Ht 182.9 cm; Wt 113.6 kg
[~2021-06-09 19:39] MED LIST changes: +RT ALBUTER2.5 MG/0.5 IH
[2021-06-09 20:05] VITALS: TEMP 97.6
[2021-06-09 21:18] LABS: BASO # 0.1 K/mm3 (0.0-0.2); BASO % 0.5 % (0.0-2.0); EOS # 0.1 K/mm3 (0.0-0.7); EOS % 1.3 % (0.0-4.0); GRAN # 5.8 K/mm3 (1.4-6.5); GRAN % 60.7 % (42.2-75.2); HEMATOCRIT 51.6 % (42.0-52.0); LYMPH # 2.6 K/mm3 (1.2-3.4); LYMPH % 27.6 % (20.0-51.0); MEAN CELL VOLUME 88 fl (80.0-100.0); MEAN CORPUSCULAR HEMOGLOBIN 29 pg (27-31); MEAN CORPUSCULAR HGB CONC 33 g/dl (33.0-37.0); MEAN PLATELET VOLUME 10.3 fl (7.4-10.4); MONO # 0.9 K/mm3 (0.1-0.6); MONO % 9.6 % (1.7-9.3); PLATELET COUNT 214 K/mm3 (130-400); RED BLOOD COUNT 5.87 M/mm3 (4.20-5.60); REDCELL DISTRIBUTION WIDTH-CV 15.2 % (11.5-14.5)
[2021-06-09 21:38] LABS: ALBUMIN 2.8 gm/dL (3.5-5.0); BILIRUBIN,TOTAL 1.4 mg/dL (0.2-1.2); C-REACTIVE PROTEIN 0.9 mg/dL (0.00-0.50); CALCIUM 8.9 mg/dL (8.4-10.2); CREATININE, serum 0.91 mg/dL (0.72-1.25); POTASSIUM 3.6 mmol/L (3.5-4.5); TOTAL PROTEIN 7.1 gm/dL (6.2-8.1)
[2021-06-09 21:39] LABS: ERYTHROCYTE SEDIMENTATION RATE 1 mm/hr (0-30)
[2021-06-09] MEDS ORDERED: DOXYCYCLINE 10100 MG PO (22:36)
[2021-06-09 23:21] VITALS: BP 143/101; PULSE 71
== END 2021-06-09 23:20 | disposition home or self-care (01) ==
LOC: COL.ER 19:39
PROVIDERS: Physician Assistant
DX: L03.116 Cellulitis of left lower limb (principal); J44.9 Chronic obstructive pulmonary disease, unspecified; I11.0 Hypertensive heart disease with heart failure; I50.9 Heart failure, unspecified; I48.91 Unspecified atrial fibrillation; E78.5 Hyperlipidemia, unspecified; E11.9 Type 2 diabetes mellitus without complications; F32.A Depression, unspecified; F41.9 Anxiety disorder, unspecified; Z79.899 Other long term (current) drug therapy; Z79.01 Long term (current) use of anticoagulants; Z79.82 Long term (current) use of aspirin; Z79.02 Long term (current) use of antithrombotics/antiplatelets; Z79.84 Long term (current) use of oral hypoglycemic drugs
CPT/HCPCS: J3370; J7030; J7040

== ENCOUNTER 2021-08-08 15:37 | Inpatient (IN) | payer MEDICARE, MEDICAID ==
[~2021-08-08] VITALS: Ht 182.9 cm; Wt 113.0 kg
[2021-08-08 17:13] LABS: BASO # 0.1 K/mm3 (0.0-0.2); BASO % 0.7 % (0.0-2.0); EOS # 0.1 K/mm3 (0.0-0.7); EOS % 1.1 % (0.0-4.0); GRAN # 6.2 K/mm3 (1.4-6.5); GRAN % 62.9 % (42.2-75.2); HEMATOCRIT 50.5 % (42.0-52.0); HEMOGLOBIN 16.7 g/dl (13.5-18.0); LYMPH # 2.5 K/mm3 (1.2-3.4); LYMPH % 25.4 % (20.0-51.0); MEAN CELL VOLUME 90 fl (80.0-100.0); MEAN CORPUSCULAR HEMOGLOBIN 30 pg (27-31); MEAN CORPUSCULAR HGB CONC 33 g/dl (33.0-37.0); MEAN PLATELET VOLUME 10.1 fl (7.4-10.4); MONO % 9.7 % (1.7-9.3); PLATELET COUNT 214 K/mm3 (130-400); RED BLOOD COUNT 5.64 M/mm3 (4.20-5.60); REDCELL DISTRIBUTION WIDTH-CV 15.2 % (11.5-14.5)
[2021-08-08 17:27] LABS: COLLECTION METHOD CLEAN CATCH
[2021-08-08 17:28] LABS: ACETONE,SERUM NEGATIVE
[2021-08-08 17:32] LABS: INR 1.9 (0.8-3.0); PROTHROMBIN TIME 21.4 SECONDS (9.7-12.8)
[2021-08-08 17:34] LABS: ALANINE AMINOTRANSFERASE 12 U/L (0-55); ALBUMIN 2.9 gm/dL (3.5-5.0); ALKALINE PHOSPHATASE 92 U/L (40-150); ANION GAP 11 mmol/L (7-16); AST,SGOT 17 U/L (5-34); BILIRUBIN,TOTAL 1.6 mg/dL (0.2-1.2); BLOOD UREA NITROGEN 16 mg/dL (8-26); C-REACTIVE PROTEIN 0.76 mg/dL (0.00-0.50); CALCIUM 8.9 mg/dL (8.4-10.2); CARBON DIOXIDE 25 mmol/L (22-29); CHLORIDE 99 mmol/L (98-107); CREATINE KINASE 59 U/L (30-200); CREATININE, serum 0.99 mg/dL (0.72-1.25); GLUCOSE 142 mg/dL (70-99); POTASSIUM 3.7 mmol/L (3.5-4.5); SODIUM 135 mmol/L (136-145); TOTAL PROTEIN 6.9 gm/dL (6.2-8.1)
[2021-08-08 17:35] LABS: MUCOUS Present (NOT PRESENT); PH 7 (5-8); SQUAMOUS EPITHELIAL 0-2 /hpf (0-10); URINE APPEARANCE Clear (CLEAR/HAZY); URINE BACTERIA None Seen /hpf (NONE SEEN); URINE BILIRUBIN Negative (NEGATIVE); URINE BLOOD 3+ (NEGATIVE); URINE COLOR Yellow (YELLOW); URINE GLUCOSE Negative (NEGATIVE); URINE KETONE Negative (NEGATIVE); URINE LEUKOCYTE ESTERASE Negative (NEGATIVE); URINE NITRATE Negative (NEGATIVE); URINE PROTEIN(semi-quant) 1+ (NEGATIVE); URINE RBC >50 /hpf (0-2)
[2021-08-08] MEDS ORDERED: TYLENOL 500MG500 MG PO (17:37)
[2021-08-08] MEDS ORDERED: COZAAR 50MG50 MG/TAB PO (17:37)
[2021-08-08] MEDS ORDERED: MOTRIN 200200 MG/TAB PO (17:38)
[2021-08-08] MEDS ORDERED: COREG12.5 MG PO (17:38)
[2021-08-08 17:40] LABS: TROPONIN-I 0.028 ng/mL (0.00-0.033)
[2021-08-08 22:27] VITALS: BP 124/92
[2021-08-08 22:28] VITALS: BP 144/96
[2021-08-08 22:29] VITALS: BP 143/78
[2021-08-09 04:37] VITALS: BP 135/75; PULSE 70; TEMP 97.4
[2021-08-09 05:05] LABS: BASO # 0.1 K/mm3 (0.0-0.2); BASO % 0.8 % (0.0-2.0); EOS # 0.2 K/mm3 (0.0-0.7); EOS % 2.3 % (0.0-4.0); GRAN # 4.5 K/mm3 (1.4-6.5); GRAN % 59.8 % (42.2-75.2); HEMATOCRIT 49.6 % (42.0-52.0); HEMOGLOBIN 16.1 g/dl (13.5-18.0); LYMPH # 1.9 K/mm3 (1.2-3.4); LYMPH % 25.1 % (20.0-51.0); MEAN CELL VOLUME 92 fl (80.0-100.0); MEAN CORPUSCULAR HEMOGLOBIN 30 pg (27-31); MEAN CORPUSCULAR HGB CONC 33 g/dl (33.0-37.0); MONO # 0.9 K/mm3 (0.1-0.6); MONO % 11.7 % (1.7-9.3); PLATELET COUNT 198 K/mm3 (130-400); RED BLOOD COUNT 5.38 M/mm3 (4.20-5.60); REDCELL DISTRIBUTION WIDTH-CV 15.4 % (11.5-14.5)
[2021-08-09 05:18] LABS: CALCIUM 8.1 mg/dL (8.4-10.2); CREATININE, serum 0.94 mg/dL (0.72-1.25); POTASSIUM 3.8 mmol/L (3.5-4.5)
--- NOTE | 2021-08-09 05:37 | NUR ---
Patient has been resting in bed with call light within reach. Has been eatting snacks as requested throughout the night. Denies having pain and discomfort. Continues on IV ABX per orders for cellulitis to LLE. Voices no questions, needs, or concerns at this time. In bed with call light within reach. Bed alarm on.
--- NOTE | 2021-08-09 05:44 | NUR ---
55 yo male with a previous history of MRSA is now admitted for further care and management of sepsis likely secondary to L lower extremity cellulitis with possible sacral abscess. ht 182.9 cm wt 122.3 kg SCr 0.99 with estimated CrCl >60ml/min half life 12.8 hours Plan: Patient received an initial loading dose of vancomycin 1500 mg x1 in the ED; will give a supplemental loading dose of vancomycin 1000 mg x1 for a total loading dose of 2500 mg (20.4 mg/kg); followed by a maintenance regimen of vancomycin 1500 mg q12h to target a goal trough of 15-20 mcg/ml (aiming for higher trough with concerns for possible abscess). Will follow patient's renal function, micro data, and vancomycin levels as indicated to assess for any necessary changes to regimen. Thank you for this dosing consult.
--- NOTE | 2021-08-09 06:30 | NUR ---
THE PATIENT IS LAYING IN BED AT THIS TIME, PER REPORT, THE PATIENT IS GOING TO RECV VANC AND A CONSULT WITH DR. OZUNA. UNTIL DR. OZUNA SEES THE PATIENT, HE WILL REMAIN NPO WITH ICE CHIPS.
[2021-08-09 07:54] VITALS: BP 118/70; PULSE 69; TEMP 97.7
--- NOTE | 2021-08-09 10:20 | NUR ---
DURING INITIAL ADMINISTRATION OF VANC THE PATIENT BEGAN TO GET RED, UP THE RIGHT ARM, ACROSS THE CHEST, AND UP THE NECK AND ON THE FACE. DISCUSSED REACTION WITH PROVIDER WHO ORDERED BENEDRYL.
[2021-08-09 11:43] VITALS: BP 119/69; PULSE 70; TEMP 97.7
--- NOTE | 2021-08-09 11:43 | NUR ---
PT CALLED RN, THIS RN ASSESSED PATIENT THE PATIENT STATES HE "FEELS FUNNY, LIKE A DULL ACHE THROUGHOUT THE WHOLE BODY". THE PATIENT IS DIAPHORETIC AND APPEARS ILL AT THIS TIME. TALKED TO PROVIDER WHO IS GOING TO SEE HIM AT THIS TIME. EKG ORDERED, RT CALLED FOR THIS.
--- NOTE | 2021-08-09 12:45 | NUR ---
Financial Accounting Manager offered prayer and support.
--- NOTE | 2021-08-09 14:39 | NUR ---
paint factory worker met with patient to discuss discharge plan. Patient down here staying with a friend at the [facility]. He reports to having a low income apartment in [place] but that he stays down here because [place] " [place] the [place]". Patient reports to being independent with his ADL's and utilizes a cane to assist with mobility. Patient states that he has a CPAP machine, but needs new filter, a mask and hosing for his machine. Patient verbalizes that he feels like he needs a new sleep study. PCP is Dr. Kelvin Taylor and he utilizes the pharmacy in [place] for medications with no cost difficulty. Patient does not have a DPOA-HC established. States that he is not and has no children. He has 3 sisters and states that Tanvi Odell ([phone]) would be the best contact but overall if "fine" with his sisters making his medical decisions for him. Patient reports that in addidtion to the CPAP supplies, he will need a ride back to the [facility] upon discharge. Patient has a Jeep that is currently in the shop and is scheduled to be fixed this Wednesday. Patient reports that someone from [place] brought him here. Discharge plan: Home; needs CPAP supplies and a ride home.
[2021-08-09 15:57] VITALS: BP 139/86; PULSE 73; TEMP 98.6
[2021-08-09 19:29] VITALS: BP 134/80; PULSE 70; TEMP 98.7
[2021-08-09 23:15] VITALS: BP 109/66; PULSE 103; TEMP 97.7
--- NOTE | 2021-08-10 00:06 | NUR ---
PT REFUSING BIPAP. This RT attempted to setup BIPAP for Pt to use while in hospital. Pt had MANY complaints and regardless of me trying to fix them the Pt asked me to take the BIPAP off. Pt stated that there was no reason to leave the hospital machine in the room and that he would not try to use it any more. BIPAP removed from room.
[2021-08-10 04:10] VITALS: BP 150/93; PULSE 73; TEMP 97.4
--- NOTE | 2021-08-10 06:30 | NUR ---
Report rcvd from OMAYRA Vazquez. Pt sleeping at this time. No other concerns.
[2021-08-10 06:44] LABS: BASO # 0.1 K/mm3 (0.0-0.2); BASO % 0.8 % (0.0-2.0); EOS # 0.2 K/mm3 (0.0-0.7); EOS % 2.2 % (0.0-4.0); GRAN # 4.2 K/mm3 (1.4-6.5); GRAN % 53.9 % (42.2-75.2); HEMOGLOBIN 17.8 g/dl (13.5-18.0); LYMPH # 2.3 K/mm3 (1.2-3.4); LYMPH % 29.5 % (20.0-51.0); MEAN CELL VOLUME 92 fl (80.0-100.0); MEAN CORPUSCULAR HEMOGLOBIN 30 pg (27-31); MEAN CORPUSCULAR HGB CONC 32 g/dl (33.0-37.0); MEAN PLATELET VOLUME 10.2 fl (7.4-10.4); MONO % 13.5 % (1.7-9.3); PLATELET COUNT 209 K/mm3 (130-400); RED BLOOD COUNT 5.99 M/mm3 (4.20-5.60); REDCELL DISTRIBUTION WIDTH-CV 15.8 % (11.5-14.5)
[2021-08-10 07:09] LABS: CALCIUM 8.7 mg/dL (8.4-10.2); CREATININE, serum 0.9 mg/dL (0.72-1.25); POTASSIUM 3.6 mmol/L (3.5-4.5)
[2021-08-10 07:37] VITALS: BP 145/110; PULSE 71; TEMP 98.1
[2021-08-10 12:43] VITALS: BP 155/89; PULSE 70; TEMP 97.5
[2021-08-10 16:14] VITALS: BP 138/92; PULSE 72; TEMP 98.3
--- NOTE | 2021-08-10 19:43 | NUR ---
Pt had uneventful day. Transitioned patient from Vanc to Doxy IV for the cellulitis of his LLE. The patient denies any pain or discomfort, and has been in a great mood today. Report given to OMAYRA Vazquez.
[2021-08-10 19:46] VITALS: BP 139/81; PULSE 70; TEMP 98
--- NOTE | 2021-08-10 21:21 | NUR ---
ALERT AND OX4. DENIES SOA EXCEPT WITH AMBULATION. NO CHEST PAIN, OCC DIZZY WHEN STANDING UP ABRUPTLY. BILATERAL LEG SLIGHT RED, IMPROVING. PM MEDS GIVEN. ANTIBOTICS DISCUSSED. CALL LIGHT WI REACH.
[2021-08-10 23:47] VITALS: BP 143/95; PULSE 71; TEMP 98.2
[2021-08-11 04:41] VITALS: BP 156/97; PULSE 70; TEMP 97.9
--- NOTE | 2021-08-11 05:34 | NUR ---
RESTED THROUGH THE NIGHT WITHOUT INCIDENT. NEEDS MET.
[2021-08-11 06:41] LABS: BASO # 0.1 K/mm3 (0.0-0.2); BASO % 0.9 % (0.0-2.0); EOS # 0.2 K/mm3 (0.0-0.7); EOS % 2.8 % (0.0-4.0); GRAN # 4.2 K/mm3 (1.4-6.5); GRAN % 53.4 % (42.2-75.2); HEMOGLOBIN 17.9 g/dl (13.5-18.0); LYMPH # 2.5 K/mm3 (1.2-3.4); LYMPH % 31.5 % (20.0-51.0); MEAN CELL VOLUME 93 fl (80.0-100.0); MEAN CORPUSCULAR HEMOGLOBIN 30 pg (27-31); MEAN CORPUSCULAR HGB CONC 33 g/dl (33.0-37.0); MONO # 0.9 K/mm3 (0.1-0.6); MONO % 11.1 % (1.7-9.3); PLATELET COUNT 217 K/mm3 (130-400); RED BLOOD COUNT 5.93 M/mm3 (4.20-5.60); REDCELL DISTRIBUTION WIDTH-CV 15.8 % (11.5-14.5)
[2021-08-11 06:42] LABS: HEMATOCRIT 54.9 % (42.0-52.0)
[2021-08-11 07:07] LABS: CALCIUM 8.6 mg/dL (8.4-10.2); CREATININE, serum 0.96 mg/dL (0.72-1.25); POTASSIUM 3.5 mmol/L (3.5-4.5)
[2021-08-11 07:10] VITALS: BP 154/98; PULSE 73; TEMP 97.3
--- NOTE | 2021-08-11 09:20 | NUR ---
PT AOX4, PLEASANT, ASSESSMENT PERFORMED, MEDICATIONS GIVEN, ENTERED ROOM WITH PHYSICIAN ROUNDING, PT REPORTS PRODUCTIVE COUGH DURING THE NIGHT, PT ATE 100% BREAKFAST, EDUCATED ON ALL MEDS GIVEN, NO OTHER NEEDS
[2021-08-11 11:29] VITALS: BP 151/93; PULSE 74; TEMP 98.2
--- NOTE | 2021-08-11 11:44 | NUR ---
ASKED PCT PT BS, PCT REPORTED IT AT 175, 2UNITS ADMINISTERED PER SLIDING SCALE USING 2 PT IDENTIFIERS AT BEDSIDE. ONCE [facility] BACK UP BS DID NOT POPULATE TO LAB SECTION, NEW BS OBTAINED AND RESULTED AT 152
[2021-08-11 15:23] VITALS: BP 156/101; PULSE 72; TEMP 98.9
[2021-08-11 17:18] VITALS: BP 164/98; PULSE 71
--- NOTE | 2021-08-11 17:21 | NUR ---
PT PLEASANT, AOX4, INSULIN GIVEN AT MEALTIMES, PT REPORTS CHRONIC PAIN IN BACK AND COCCYX ABCESS. LLE RED
--- NOTE | 2021-08-11 17:25 | NUR ---
INC BP REPORTED TO DR. CUNNINGHAM, NO NEW ORDERS AT THIS TIME, WILL CONTINUE TO MONITOR
[2021-08-11 19:26] VITALS: BP 151/88; PULSE 83; TEMP 98.8
--- NOTE | 2021-08-11 22:18 | NUR ---
ALERT AND OX4. DENIES SOA, CHEST PAIN OR DIZZY. BILATERAL LEGS IMPROVING. IV ANTIBOTICS. ANTICAPATES DC TOMORROW. DENIES ANY NEEDS. CALL LIGHT WI REACH.
[2021-08-12 00:17] VITALS: BP 146/84; PULSE 69; TEMP 98.1
[2021-08-12 04:26] VITALS: BP 140/75; PULSE 70; TEMP 97.9
--- NOTE | 2021-08-12 05:19 | NUR ---
RESTED THROUGH THE NIGHT WITHOUT INCIDENT. CALL LIGHT WI REACH.
[2021-08-12 06:46] LABS: BASO # 0.1 K/mm3 (0.0-0.2); EOS # 0.2 K/mm3 (0.0-0.7); EOS % 2.7 % (0.0-4.0); GRAN # 4.5 K/mm3 (1.4-6.5); GRAN % 55.9 % (42.2-75.2); HEMOGLOBIN 17.6 g/dl (13.5-18.0); LYMPH # 2.4 K/mm3 (1.2-3.4); LYMPH % 30.1 % (20.0-51.0); MEAN CELL VOLUME 92 fl (80.0-100.0); MEAN CORPUSCULAR HEMOGLOBIN 30 pg (27-31); MEAN CORPUSCULAR HGB CONC 33 g/dl (33.0-37.0); MEAN PLATELET VOLUME 10.8 fl (7.4-10.4); MONO # 0.8 K/mm3 (0.1-0.6); MONO % 10.1 % (1.7-9.3); PLATELET COUNT 220 K/mm3 (130-400); RED BLOOD COUNT 5.88 M/mm3 (4.20-5.60); REDCELL DISTRIBUTION WIDTH-CV 15.4 % (11.5-14.5)
[2021-08-12 06:52] LABS: HEMATOCRIT 54.2 % (42.0-52.0)
[2021-08-12 06:59] LABS: CALCIUM 8.6 mg/dL (8.4-10.2); CREATININE, serum 0.85 mg/dL (0.72-1.25); POTASSIUM 3.5 mmol/L (3.5-4.5)
[2021-08-12 07:33] VITALS: BP 135/85; PULSE 70; TEMP 98
--- NOTE | 2021-08-12 09:15 | NUR ---
Assessment completed, alert/oriented, vital signs stable, denies pain this morning, BLE reddness and swelling/ Left worse than right, small wound/ulcer to left buttock patient refuses assessment of this area at this time, continues on abx, he is hoping to go home, has taken moring meds and had breakfast, dneies needs and just wants to be discharged, will discuss POC with hospitalist
[2021-08-12] MEDS ORDERED: DESENEX TP (10:34)
[2021-08-12] MEDS ORDERED: DOXYCYCLINE HY100 MG PO (10:35)
--- NOTE | 2021-08-12 11:34 | NUR ---
RONNY attended clinical rounds. The patient is ready for discharge. RONNY met with the patient to follow up and review discharge plan. He confirms that he is going back to his friend, Betina, apartment at the [facility]. He states that his vehicle's transmission is out and it is still being worked on. He states that he will need a ride back to his friend's house and he cannot afford a taxi. RONNY inquired if he needs a ride to [place] to apple picker his medications. The patient states that he will be able to get his meds and declined a ride to [facility]. SW inquired about his CPAP supplies and where he gets them from. The patient states that he is needing supplies and he gets the supplies from [facility]. RONNY presented and read the IM form outloud to the patient. The patient verbalized understanding and of his agreement to discharge today. He gave RONNY approval to sign the form on his behalf. RONNY provided him with a copy. RONNY contacted Mikie at [facility] and informed him of the supplies needed. Mikie states that they have to contact the patient's PCP and get a script from the PCP for the supplies. They will contact the PCP. RONNY met informed the patient of this. The patient verbalized understanding. RONNY provided the patient's RN with a taxi voucher. Mikie, at [facility], then contacted RONNY and states that they do not have the patient's updated information and his PCP on file. They asked that the patient give them a call to update his information. RONNY updated the patient and provided him with [facility]'s phone number. No additional needs at this time.
[2021-08-12 11:56] VITALS: BP 144/88; PULSE 72; TEMP 98.4
--- NOTE | 2021-08-12 14:47 | NUR ---
Discharge orders discussed with patient, instructed to follow up with PCP as scheduled, take meds as prescribed, script for Doxy sent to pharamcy for him, IV and tele removed, ROTARY BAR OPERATOR escorted patient out the dooor
== END 2021-08-12 14:54 | disposition home or self-care (01) | DRG 603 ==
LOC: COL.ER 15:37 → MEDICAL 19:00
PROVIDERS: Emergency Medicine; Nurse Practitioner Family; Physician Assistant; Student in an Organized Health Care Education/Training Program; ADMIT Internal Medicine
DX: L03.116 Cellulitis of left lower limb (principal); I50.22 Chronic systolic (congestive) heart failure; I48.92 Unspecified atrial flutter; I42.9 Cardiomyopathy, unspecified; E87.2 Acidosis; B37.89 Other sites of candidiasis; L02.31 Cutaneous abscess of buttock; I48.91 Unspecified atrial fibrillation; I11.0 Hypertensive heart disease with heart failure; E11.9 Type 2 diabetes mellitus without complications; J44.9 Chronic obstructive pulmonary disease, unspecified; I25.119 Atherosclerotic heart disease of native coronary artery with unspecified angina pectoris; G47.33 Obstructive sleep apnea (adult) (pediatric); E78.5 Hyperlipidemia, unspecified; G89.29 Other chronic pain; M54.9 Dorsalgia, unspecified; F32.A Depression, unspecified; R62.7 Adult failure to thrive; R31.9 Hematuria, unspecified; F41.9 Anxiety disorder, unspecified; F17.210 Nicotine dependence, cigarettes, uncomplicated; L29.9 Pruritus, unspecified; T36.8X5A Adverse effect of other systemic antibiotics, initial encounter; Z95.1 Presence of aortocoronary bypass graft; Z95.0 Presence of cardiac pacemaker; Z87.442 Personal history of urinary calculi; Z95.810 Presence of automatic (implantable) cardiac defibrillator; Z95.5 Presence of coronary angioplasty implant and graft; Z88.0 Allergy status to penicillin; Z88.2 Allergy status to sulfonamides; Z86.718 Personal history of other venous thrombosis and embolism; Z79.82 Long term (current) use of aspirin; Z68.32 Body mass index [BMI] 32.0-32.9, adult
CPT/HCPCS: 99222-AI; 99232-AI; 99233-AI; 99239; J0696; J1200; J1815; J3370; J7050